=== PATIENT | female | born 1965 | race Caucasian/White ===

== ENCOUNTER → 2016-07-10 | Outpatient (CLI) | payer OTHER ==
[~2016-07-10] MED LIST: INNOPRAN PO; IRON1 CHI PO; LISINOPRIL2.5 MG PO; MOBIC7.5 MG PO; NEURONTIN800 MG PO; PERCOCET 325 MG1 TA2 PO; PERCOCET 325 MG1 TA7 PO; PRILOSEC10 MG PO; SILVADENE,SSD C50 GM T; SINGULAIR4 MG PO; STOMACH PILL PO; ZOCOR5 MG PO; ZOLOFT100 MG PO
== END | disposition home or self-care (01) ==
LOC: MAMMO 11:30
DX: Z12.31 Encounter for screening mammogram for malignant neoplasm of breast (principal)

== ENCOUNTER → 2018-05-15 | Outpatient (CLI) | payer OTHER | END | disposition home or self-care (01) | LOC: RAD 11:25 | DX: M25.442 Effusion, left hand (principal); M25.441 Effusion, right hand; M13.0 Polyarthritis, unspecified ==

== ENCOUNTER 2018-11-22 17:16 | Inpatient (IN) | payer OTHER ==
[~2018-11-22] VITALS: Ht 157.4 cm; Wt 58.1 kg
[2018-11-22 17:25] VITALS: BP 130/95
[2018-11-22 17:45] LABS: BASO # 0.1 10*3/uL (0.0-0.1); BASO % 0.6 % (0.0-1.0); EOS # 0.1 10*3/uL (0.0-0.4); EOS % 1.1 % (1.0-4.0); HEMATOCRIT 40.3 % (37.0-47.0); HEMOGLOBIN 13.5 g/dl (12.0-16.0); LYMPH # 3.8 10*3/uL (1.3-4.4); LYMPH % 36.1 % (27.0-41.0); MEAN CORPUSCULAR HGB 33.5 pg (27.0-31.0); MEAN CORPUSCULAR HGB CONC 33.5 g/dl (33.0-37.0); MEAN PLATELET VOLUME 10.5 fl (9.6-12.3); MONO # 0.6 10*3/uL (0.1-1.0); NEUT # 5.9 10*3/uL (2.3-7.9); NEUT % 56.1 % (47.0-73.0); PLATELET COUNT AUTOMATED 181 10*3/uL (130-400); RED BLOOD COUNT 4.03 10*6/uL (4.10-5.10); WHITE BLOOD COUNT 10.5 10*3/uL (4.8-10.8)
[2018-11-22 17:58] LABS: ACT PARTIAL THROMBO TIME 27.1 SECONDS (20.0-32.1)
[2018-11-22 18:01] LABS: ALBUMIN 4.1 gm/dl (3.1-4.5); ALKALINE PHOSPHATASE 71 U/L (45-117); BUN 13 mg/dl (7-24); CHLORIDE 109 mmol/L (98-107); CREATININE 0.78 mg/dL (0.55-1.02); POTASSIUM 3.6 mmol/L (3.5-5.1); SGOT/AST 8 IU/L (3-35); SGPT/ALT 23 U/L (12-78); SODIUM 140 mmol/L (136-145); TOTAL PROTEIN 7.4 gm/dL (6.4-8.2)
[2018-11-22 18:03] LABS: TROPONIN I < 0.015 ng/ml (<0.045)
[2018-11-22 18:10] VITALS: BP 124/78
[2018-11-22 19:12] VITALS: BP 123/80
--- NOTE | 2018-11-22 19:12 | NUR ---
NURSE TO NURSE REPORT GIVEN TO THIS RN.PT AWAITING ROOM ASSIGNMENT FOR UNIT.
[2018-11-22 20:20] VITALS: BP 131/81
--- NOTE | 2018-11-22 20:20 | NUR ---
A 53, admitted to 5E, under the services of AMADOU Patton DO with a diagnosis of HYPOXIA,CHEST PAIN. Chief complaint is CHEST PAIN. Patient arrived via stretcher from ER. Monitor applied. Initial assessment completed. Vital signs taken and recorded. AMADOU PATTON DO notified of admission to the unit. Orders received. See assessment for past medical history, medications and allergies. Patient and/or family oriented to unit. [facility] visitation policy reviewed. Clothing/patient valuable form completed. MADISON LAWTON
--- NOTE | 2018-11-22 20:30 | NUR ---
NOTIFIED DR. CARRILLO PATIENT IS ADMITTED UNDER OBSERVATION AND HAS A ECHO ORDERED FOR TOMORROW. WHEN A PATIENT IS ADMITTED UNDER OBSERVATION,TESTING OTHER THEN TROPONINS AND EKGS CAN NOT BE DONE. PATIENT TO BE CHANGED TO INPATIENT.
[2018-11-22] MEDS ORDERED: OMEPRAZOLE40 MG PO (20:33)
[2018-11-22] MEDS ORDERED: LISINOPRIL-HCT1 EACH PO (20:33)
[2018-11-22] MEDS ORDERED: GABAPENTIN600 MG PO (20:34)
[2018-11-22] MEDS ORDERED: Percocet 325 MG1 TAB PO (20:37)
--- NOTE | 2018-11-22 20:53 | NUR ---
NOTIFIED DR. CARRILLO [facility] UP TO DATE.
[2018-11-23] VITALS: BP 118/70
--- NOTE | 2018-11-23 01:43 | NUR ---
NOTIFIED CARDIOLOGYS ANSWERING SERVICE OF NEW CONSULT.
--- NOTE | 2018-11-23 07:04 | NUR ---
PATIENT MEDICATED WITH [facility]CO FOR COMPLAINTS OF BACK/CHEST PAIN. RATES 05/15. WILL CHECK EFFECTIVENESS.
[2018-11-23 07:15] LABS: BASO # 0.1 10*3/uL (0.0-0.1); BASO % 0.9 % (0.0-1.0); EOS # 0.2 10*3/uL (0.0-0.4); EOS % 2.3 % (1.0-4.0); HEMATOCRIT 41.4 % (37.0-47.0); HEMOGLOBIN 13.8 g/dl (12.0-16.0); LYMPH # 3.2 10*3/uL (1.3-4.4); LYMPH % 42.6 % (27.0-41.0); MEAN CELL VOLUME 100.2 fl (81.0-99.0); MEAN CORPUSCULAR HGB 33.4 pg (27.0-31.0); MEAN CORPUSCULAR HGB CONC 33.3 g/dl (33.0-37.0); MEAN PLATELET VOLUME 10.5 fl (9.6-12.3); MONO # 0.5 10*3/uL (0.1-1.0); MONO % 7.1 % (3.0-9.0); NEUT # 3.5 10*3/uL (2.3-7.9); NEUT % 46.8 % (47.0-73.0); PLATELET COUNT AUTOMATED 177 10*3/uL (130-400); RED BLOOD COUNT 4.13 10*6/uL (4.10-5.10); WHITE BLOOD COUNT 7.4 10*3/uL (4.8-10.8)
[2018-11-23 07:38] LABS: BUN 10 mg/dl (7-24); CHLORIDE 107 mmol/L (98-107); POTASSIUM 3.5 mmol/L (3.5-5.1); SODIUM 139 mmol/L (136-145)
[2018-11-23 07:50] LABS: CHOLESTEROL 244 mg/dL (<200); CREATININE 0.64 mg/dL (0.55-1.02); FREE T4 0.93 ng/dl (0.76-1.46); HDL CHOLESTEROL 35 mg/dl (40-60); LDL CHOLESTEROL 186 mg/dL (9-159); PHOSPHOROUS 4.6 mg/dL (2.5-4.9); TRIGLYCERIDES 113 mg/dl (<150); VLDL CHOLESTEROL 23 mg/dL (6-40)
[2018-11-23 08:00] VITALS: BP 107/65
[2018-11-23 08:47] LABS: VITAMIN D, 25-HYDROXY 21.4 ng/mL (30-100)
[2018-11-23 11:18] VITALS: BP 140/78
[2018-11-23] MEDS ORDERED: VITAMIN D32000 UNI1 PO (12:02)
[2018-11-23] MEDS ORDERED: ASPIRIN ADULT L81 M2 PO (12:02)
--- NOTE | 2018-11-23 13:05 | NUR ---
Discharge instructions reviewed with patient/family. Patient receptive and verbalizes understanding. Follow-up care arranged. Written instructions given to patient/family. [facility]OCK DISCONTINUED. TREASURY SPECIALIST DISCONTINUED. PATIENT AMBULATORY OFF FLOOR. REBECCA GROSS
[2018-12-17] MEDS ORDERED: ATIVAN0.5 MG PO (06:39)
== END 2018-11-23 13:00 | disposition home or self-care (01) | DRG 392 ==
LOC: ED 17:16 → EDHOLD 18:41 → 5E 19:19
PROVIDERS: Internal Medicine; ADMIT Emergency Medicine
DX: K21.9 Gastro-esophageal reflux disease without esophagitis (principal); I10 Essential (primary) hypertension; E78.5 Hyperlipidemia, unspecified; R09.02 Hypoxemia; E87.8 Other disorders of electrolyte and fluid balance, not elsewhere classified; D75.89 Other specified diseases of blood and blood-forming organs; F17.210 Nicotine dependence, cigarettes, uncomplicated; M47.26 Other spondylosis with radiculopathy, lumbar region; E55.9 Vitamin D deficiency, unspecified; Z79.82 Long term (current) use of aspirin; Z88.5 Allergy status to narcotic agent; Z71.6 Tobacco abuse counseling; Z98.51 Tubal ligation status; Z82.49 Family history of ischemic heart disease and other diseases of the circulatory system; Z83.3 Family history of diabetes mellitus

== ENCOUNTER → 2018-12-17 | Outpatient (CLI) | payer OTHER ==
[~2018-12-17] MED LIST changes: +ASPIRIN ADULT L81 M2 PO; +ATIVAN0.5 MG PO; +GABAPENTIN600 MG PO; +LISINOPRIL-HCT1 EACH PO; +OMEPRAZOLE40 MG PO; +Percocet 325 MG1 TAB PO; +VITAMIN D32000 UNI1 PO
--- NOTE | ~2018-12-17 | ST ---
[place], [place] EXERCISE STRESS TEST REPORT NAME: MUNIRA DESHPANDE UNIT #: [id number] ROOM: DOCTOR: CROW VELEZ MD BIRTHDATE: [birth year] DOS: 12/17/2018 LEXISCAN PORTION OF THE LEXISCAN CARDIOLITE The patient has intermittent pacing with atrial sensing and ventricular pacing and vice versa done well from the cardiac point of view, 0.4 mg Lexiscan, duration of 10 seconds. No new EKG changes. Blood pressure and heart rate response was normal. No chest discomfort. FINAL IMPRESSION: No new EKG with Lexiscan. No chest pain with Lexiscan. No dysrhythmia. The patient does have intermittent pacing. Nuclear images will be reported separately. CROW VELEZ MD CM:STRESS:EXERCISE STRESS TEST REPORT [id number] CROW VELEZ MD
--- NOTE | ~2018-12-17 | ST ---
[place], [place] EXERCISE STRESS TEST REPORT NAME: MUNIRA DESHPANDE UNIT #: [id number] ROOM: DOCTOR: CROW VELEZ MD BIRTHDATE: [birth year] DOS: 12/17/2018 EXERCISE PORTION OF THE EXERCISE CARDIOLITE Baseline cardiogram, sinus rhythm with nonspecific ST-T changes. The patient walked on the Dex protocol 6 minutes 30 seconds achieving a heart rate of 156, 93% of predicted heart rate. Procedure was terminated, completion of the protocol. Baseline cardiogram, sinus with exercise, no new EKG changes. The patient had no chest discomfort, no dysrhythmia. Blood pressure and heart rate response was normal. Nuclear images will be reported separately. CROW VELEZ MD CM:STRESS:EXERCISE STRESS TEST REPORT [id number] CROW VELEZ MD
--- NOTE | 2018-12-17 07:55 | NUR ---
INFORMED CONSENT SIGNED FOR CARDIOLYTE STRESS TEST WITH DR. VELEZ. RESTING EKG NSR, HR 75, BP 126/74. COMPLETED 6:30 OF A 2 MINUTE KATIE PROTOCOL COMPLETING :30 OF STAGE IV, 4.2MPH/16% GRADE. PEAK HR OF 156 ACHIEVED WHICH IS 93% PREDICTED MAXIMUM AND A PEAK BP OF 172/60. RARE PVC NOTED WITH NO ST CHANGES. TEST TERMINATED D/T FATIGUE. HAS A GOOD EXERCISE TOLERANCE. LAST RECOVERY HR 90, BP 128/30. WAITING NUCLEAR SCANNING IN STABLE CONDITION.
== END | disposition home or self-care (01) ==
LOC: CARD 00:03
DX: I20.9 Angina pectoris, unspecified (principal); I10 Essential (primary) hypertension

== ENCOUNTER → 2018-12-30 | Outpatient (CLI) | payer OTHER ==
[2018-12-30 10:51] LABS: BUN 12 mg/dl (7-24); CHLORIDE 109 mmol/L (98-107); CHOLESTEROL 202 mg/dL (<200); CREATININE 0.75 mg/dL (0.55-1.02); HDL CHOLESTEROL 41 mg/dl (40-60); LDL CHOLESTEROL 134 mg/dL (9-159); POTASSIUM 3.8 mmol/L (3.5-5.1); SODIUM 143 mmol/L (136-145); TRIGLYCERIDES 134 mg/dl (<150); VLDL CHOLESTEROL 27 mg/dL (6-40)
== END | disposition home or self-care (01) ==
LOC: LAB 09:39
PROVIDERS: Family Medicine
DX: I10 Essential (primary) hypertension (principal); E78.2 Mixed hyperlipidemia

== ENCOUNTER → 2020-07-26 | Outpatient (CLI) | payer OTHER ==
[2020-07-26 14:33] LABS: BUN 8 mg/dl (7-24); CHLORIDE 107 mmol/L (98-107); CHOLESTEROL 236 mg/dL (<200); CREATININE 0.61 mg/dL (0.55-1.02); POTASSIUM 3.7 mmol/L (3.5-5.1); SODIUM 141 mmol/L (136-145)
[2020-07-26 14:37] LABS: LDL CHOLESTEROL 164 mg/dL (9-159); TRIGLYCERIDES 166 mg/dl (<150)
== END | disposition home or self-care (01) ==
LOC: LAB 13:38
PROVIDERS: ATTEND Family Medicine
DX: I10 Essential (primary) hypertension (principal)

== ENCOUNTER → 2021-06-27 | Outpatient (CLI) | payer OTHER ==
[2021-06-27 13:28] LABS: BUN 12 mg/dl (7-24); CHLORIDE 107 mmol/L (98-107); CHOLESTEROL 231 mg/dL (<200); CREATININE 0.71 mg/dL (0.55-1.02); LDL CHOLESTEROL 163 mg/dL (9-159); POTASSIUM 3.6 mmol/L (3.5-5.1); SODIUM 139 mmol/L (136-145); TRIGLYCERIDES 116 mg/dl (<150)
== END ==
LOC: MAMMO 06-21 16:00 → LAB 11:25 → MAMMO 11:30
PROVIDERS: ATTEND Family Medicine
DX: Z12.31 Encounter for screening mammogram for malignant neoplasm of breast (principal); E78.2 Mixed hyperlipidemia

== ENCOUNTER → 2023-08-23 | Outpatient (CLI) | payer OTHER | END | disposition home or self-care (01) | LOC: MAMMO 07:30 | PROVIDERS: ATTEND Family Medicine | DX: Z12.31 Encounter for screening mammogram for malignant neoplasm of breast (principal) ==